=== PATIENT | female | born 2000 | race Caucasian/White ===

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

== ENCOUNTER 2023-07-25 14:25 | Emergency (ER) | payer MEDICAID ==
[~2023-07-25] VITALS: Ht 162.6 cm; Wt 72.6 kg
[2023-07-25 14:43] VITALS: BP 133/90; PULSE 122; RESP 18; TEMP 98; O2SAT 98
[2023-07-25] MEDS ORDERED: IBUPROFEN 600 MG TAB PO ONE (15:10)
[2023-07-25] MEDS ORDERED: ONDANSETRON 4 MG ODT PO ONE (15:10)
[2023-07-25 15:26] LABS: ANION GAP 11.8 (8-16); BASOPHILS # (AUTO) 0.1 K/uL (0.00-0.22); BASOPHILS % (AUTO) 0.5 % (0.0-2.0); CALCIUM 8.9 mg/dL (8.5-10.1); CARBON DIOXIDE 25.6 mmol/L (21-32); CREATININE 0.9 mg/dL (0.6-1.3); EOSINOPHILS % (AUTO) 0.1 % (0.0-4.0); HEMATOCRIT 30.6 % (36-48); HEMOGLOBIN 9.8 g/dL (12.0-16.0); LYMPHOCYTES # (AUTO) 1.4 K/uL (2.5-16.5); LYMPHOCYTES % (AUTO) 13.2 % (20.5-51.1); MEAN CORPUSCULAR HEMOGLOBIN 21 pg (27-31); MEAN CORPUSCULAR HGB CONC 32 g/dL (33-37); MONOCYTES % (AUTO) 9.4 % (1.7-9.3); NEUTROPHILS # (AUTO) 8.3 K/uL (1.8-7.7); NEUTROPHILS % (AUTO) 76.8 % (42.2-75.2); PLATELET COUNT (AUTO) 300 K/uL (140-450); POTASSIUM 3.4 mmol/L (3.5-5.1); RED BLOOD CELL COUNT(AUTO) 4.72 MIL/uL (4.20-5.40); RED CELL DISTRIBUTION WIDTH 18.4 % (11.6-13.7); WHITE BLOOD COUNT (AUTO) 10.8 K/uL (4.8-10.8)
[2023-07-25 15:41] LABS: ALBUMIN 3.2 g/dL (3.4-5.0); BILIRUBIN,DIRECT 0.3 mg/dL (0.0-0.3); PHOSPHORUS 2.9 mg/dL (2.5-4.9); THYROID STIMULATING HORMONE 0.86 uIU/mL (0.34-3.74); TOTAL PROTEIN, SERUM 9.2 g/dL (6.4-8.2)
[2023-07-25 16:05] LABS: APPEARANCE,URINE CLEAR (CLEAR); BILIRUBIN,URINE NEGATIVE (NEGATIVE); BLOOD, URINE 3+ (NEGATIVE); COLOR,URINE YELLOW (YELLOW); LEUKOCYTE ESTERASE ,URINE 3+ (NEGATIVE); NITRITE, URINE NEGATIVE (NEGATIVE); PROTEIN,URINE 2+ (NEGATIVE); UGLUCOSE NEGATIVE (NEGATIVE)
[2023-07-25 16:18] LABS: BACTERIA,URINE 2+ /HPF (None Seen); MUCUS,URINE 1+ /LPF (None Seen); RBC,URINE 80-100 /HPF (0-5); SQUAMOUS EPITHELIAL CELL,UR 4-10 (MOD) /LPF (0-3 (FEW)); TRICHOMONAS,URINE None Seen /HPF (None Seen); WBC,URINE TOO MANY TO COUNT /HPF (0-5); YEAST,URINE None Seen /HPF (None Seen)
[2023-07-25 19:01] VITALS: TEMP 98
[2023-07-25] MEDS ORDERED: CEFP200T20 PO (19:13)
[2023-07-25] MEDS ORDERED: IBUP-2213 PO (19:13)
[2023-07-25] MEDS ORDERED: ONDA-188 PO (19:13)
[2023-07-25] MEDS ORDERED: cefTRIAXone 1,000 MG VIAL ONE (19:26)
[2023-07-25 20:18] VITALS: BP 101/75; PULSE 81; RESP 20; O2SAT 99
== END 2023-07-25 20:19 | disposition home or self-care (01) ==
LOC: MED 14:25
DX: N12 Tubulo-interstitial nephritis, not specified as acute or chronic (principal); E87.1 Hypo-osmolality and hyponatremia; E87.6 Hypokalemia; D50.9 Iron deficiency anemia, unspecified; Z79.899 Other long term (current) drug therapy
CPT/HCPCS: 36415; 71045; 71275; 74177; 80048; 80076; 81001; 81025; 83690; 83735; 84100; 84443; 84484; 85025; 85379; 87086; 93005; 96365; 99285; J0696; Q0162; Q9967